=== PATIENT | male | born 1940 | race Caucasian/White ===

== ENCOUNTER 2018-06-18 06:21 | Inpatient (IN) | payer MEDICARE, OTHER ==
--- NOTE | 2018-06-05 14:51 | ANES ---
Anesthesia Pre Procedure Eval HOME MEDICATIONS amlodipine 10 mg tablet 10 mg PO DAILY 03/13/18 [Last Taken Unknown] lisinopril 10 mg-hydrochlorothiazide 12.5 mg tablet 1 tab PO DAILY 03/13/18 [Last Taken Unknown] Allergies/Adverse Reactions: Allergies Allergy/AdvReac Type Severity Reaction Status Date / Time No Known Allergies Allergy Verified 06/05/18 12:58 - Planned Procedure Planned Procedure: RT Arthroplasty Total Knee Medication List Reviewed:: Yes Allergies Verified: Yes Medical History (Last Reviewed 06/05/18 @ 12:58 by Vanessa Corbin) Hypertension Knee pain, right Surgical History (Last Reviewed 06/05/18 @ 12:58 by Vanessa Corbin) H/O colonoscopy Onset Date: ~2016 History of appendectomy Onset Date: Unknown age 6 Family History (Last Reviewed 06/05/18 @ 12:58 by Vanessa Corbin) Father Medical history unknown Mother Medical history unknown Brother 3 brothers medical history unknown Sister 2 sisters medical history unknown - Family Anesthesia History Family History:: no untoward family reactions to anesthesia, no familial bleeding tendencies, no family history of clotting disorders, no family history of premature - Airway/Neck/Teeth Within Normal Limits:: Yes Denture Type: Full- Upper & Lower Mallampatti Score: 2 Thyromental (T-M) distance: > 6 cm Mandibulo Hyoid distance: > 3 cm - Respiratory Smoking Status: Former smoker Discussed smoking cessation including day of surgery: No Sleep Apnea currently treated: No Sleep Apnea by current assessment: No Discussed Risks/Treatment of ANEL: No - Cardiovascular Tolerates Activity: Fair Heart Sounds: S1 & S2, Regular - Anesthesia Assessment and Plan ASA Class: PS, II Anesthesia Type Plan: Block - Right ultrasound guided peripheral nerve block for postop analgesia, Spinal
[~2018-06-18 06:21] MED LIST: ROPIVACAINE HCL/PF 100 MG, EPINEPHrine 0.2 MG, KETOROLAC TROMETHAMINE 30 MG in NORMAL S... IJ PRN; TRANEXAMIC ACID 1,000 MG in NORMAL SALINE 100 ML IV PRN; ceFAZolin SODIUM 1 GM VIAL IV PRN
[2018-06-18] MEDS: RINGER'S SOLUTION,LACTATED 1,000 ML IV PRN ×3 (07:07→09:30)
--- NOTE | 2018-06-18 07:25 | ANES ---
Anesthesia Pre Procedure Eval Vitals/Labs: Last Vital Signs Temp 36.8 C 06/18/18 06:25 Pulse 89 06/18/18 06:25 Resp 16 06/18/18 06:25 BP 138/82 06/18/18 06:25 Pulse Ox 93 06/18/18 06:25 HOME MEDICATIONS amlodipine 10 mg tablet 10 mg PO DAILY 03/13/18 [Last Taken 06/18/18] lisinopril 10 mg-hydrochlorothiazide 12.5 mg tablet 1 tab PO DAILY 03/13/18 [Last Taken 06/18/18] Allergies/Adverse Reactions: Allergies Allergy/AdvReac Type Severity Reaction Status Date / Time No Known Allergies Allergy Verified 06/18/18 06:29 - Planned Procedure Planned Procedure: RT Arthroplasty Total Knee Medication List Reviewed:: Yes Allergies Verified: Yes Medical History (Last Reviewed 06/18/18 @ 07:23 by Ricci Gonzalez CRNA) Hypertension Knee pain, right Surgical History (Last Reviewed 06/18/18 @ 07:24 by Ricci Gonzalez CRNA) H/O colonoscopy Onset Date: ~2016 History of appendectomy Onset Date: Unknown age 6 Family History (Last Reviewed 06/18/18 @ 07:24 by Ricci Gonzalez CRNA) Father Medical history unknown Mother Medical history unknown Brother 3 brothers medical history unknown Sister 2 sisters medical history unknown - Family Anesthesia History Family History:: no untoward family reactions to anesthesia, no familial bleeding tendencies, no family history of clotting disorders, no family history of premature - Airway/Neck/Teeth Within Normal Limits:: Yes Denture Type: Full- Upper & Lower Mallampatti Score: 2 Thyromental (T-M) distance: > 6 cm Mandibulo Hyoid distance: > 3 cm - Respiratory Respiratory: lungs clear Smoking Status: Former smoker Discussed smoking cessation including day of surgery: No Sleep Apnea currently treated: No Sleep Apnea by current assessment: No Discussed Risks/Treatment of ANEL: No - Cardiovascular Tolerates Activity: Fair Heart Sounds: S1 & S2, Regular - Anesthesia Assessment and Plan ASA Class: PS, II Anesthesia Type Plan: Block - Right ultrasound guided adductor canal nerve block for postop analgesia, Spinal
[2018-06-18] MEDS ORDERED: oxyCODONE HCL/ACETAMINOPHEN 1 TAB TABLET PO PRN (10:02)
[2018-06-18] MEDS ORDERED: ACETAMINOPHEN 500 MG TABLET PO PRN (10:02)
[2018-06-18] MEDS ORDERED: MAGNESIUM HYDROXIDE 30 ML UDC PO PRN (10:02)
[2018-06-18] MEDS ORDERED: MORPHINE SULFATE 2 MG/ML DISP.SYRIN IV PRN (10:02)
[2018-06-18] MEDS ORDERED: MAG HYDROX/ALUMINUM HYD/SIMETH 30 ML UDC PO PRN (10:02)
[2018-06-18] MEDS ORDERED: NORMAL SALINE 1,000 ML IV PRN (10:02)
[2018-06-18] MEDS ORDERED: diphenhydrAMINE HCL 50 MG/ML VIAL IV PRN (10:02)
--- NOTE | 2018-06-18 10:10 | OR ---
Operative Report - Dictated Report Narrative: Date: 06/18/2018 Preoperative diagnosis: Right knee degenerative joint disease. Postoperative diagnosis: Right knee degenerative joint disease. Procedure: Right total knee arthroplasty. Surgeon: Sunil Curry M.D. Contracting Analyst: Tomy Shepherd PA-C Anesthesia: Spinal with regional block and local periarticular joint injection. Complications: None Specimens: Bone for disposal. Estimated blood loss: Minimal. Tourniquet time: 69 Minutes at 300 millimeters of mercury. Retained implants: Depuy Attune size 8 standard lugged cemented posterior stabilized femoral component. Size 8 fixed-bearing cemented tibial platform. 8 by 6 millimeter posterior stabilized cross-linked tibial insert. 41 millimeter medialized patella button. Indications: Gatito is a 77-year-old male with a history of hypertension. This patient was followed in my clinic for period of time with significant complaints of right knee pain consistent with arthritic changes. They had failed conservative measures including but not limited to activity modification, passage of time, medications, and other conservative measures. Patient wished to proceed with surgical treatment. The risks, benefits, and alternatives were discussed in clinic. The risks of , blood clots, bleeding, infection, nerve/tendon blood vessel/ injury, malposition of components, intraoperative fracture, postoperative limited range of motion, persistent pain, failure of components, and need for additional procedures. Patient wished to proceed consent was obtained after answering all questions. Procedure: After marking the correct extremity on the floor, the patient was taken to the operating room. A timeout was performed. IV antibiotics consisting of 2 g of Ancef were administered prior to the procedure. A regional followed by spinal anesthetic was induced by anesthesia. on the operative table with all bony prominences well-padded. Benson catheter was placed and a bump was placed under the operative side buttock. SCDs and MIAH hose were utilized on the nonoperative leg. A well-padded tourniquet was applied to the operative thigh. The operative leg was then pre-scrubbed with alcohol prepped and draped in a standard sterile fashion. After exsanguinating the extremity with an Esmarch bandage, the tourniquet was inflated. After marking out the anterior knee for standard incision centered over the patella, the skin was incised and dissected down to the joint retinaculum. The joint retinaculum was marked out as well as the horizontal axis of the patella, and a standard medial parapatellar arthrotomy was then made. The most proximal aspect of the quadriceps tendon and the patella tendon insertion were protected from release. A partial synovectomy was performed as well as a resection of the infrapatellar fat pad. The distal femoral fat pad proximal to the trochlea was also resected using cautery. The soft tissues were elevated off the medial aspect of the proximal tibia using a Tejeda elevator ensuring that we did not transect the medial collateral ligament. Upon initial evaluation range of motion was approximately 0 degrees to 135 degrees of flexion. There were signs of advanced arthrosis in the medial and patellofemoral joint spaces. There were large marginal osteophytes which were removed with a rongeur. The knee was hyperflexed and the patella was tucked laterally. Protecting the surrounding soft tissues with Homans, an entry drill was placed down the femoral canal using Whitesides line for guidance into the entry point. The intramedullary femoral alignment meka was utilized in order to cut the distal femur in 5 of valgus resecting 10 millimeters of bone. Next the distal femur was sized to a size 8. An anterior referencing guide was utilized to place the distal femoral cutting block in 3 of external rotation. This was pinned into place. The rotation was confirmed both visually and based on anatomic landmarks. The 4 in 1 cutting jig of the appropriate size was utilized in order to make all bony cuts. Retractors were utilized in order to protect surrounding soft tissues. This cut did not result in any excessive notching. We then cut the box centered over the distal femur. This allowed for resection of the anterior and posterior cruciate ligaments. I then turned my attention to the preparation of the tibia. Using an extra medullary tibial alignment meka, 2 millimeters of bone was resected off the medial articular surface. This was made perpendicular to the mechanical axis of the joint with the alignment meka centered over the ankle mortise. The alignment meka was parallel to the mechanical axis, centered over the medial one third of the tibial tubercle, paralleling the anterior surface of the tibia. We then turned our attention to the remaining meniscus and soft tissues. These were removed while protecting the surrounding ligaments and soft tissues. The marginal osteophytes off the anterior, posterior, medial, lateral aspects of the femur and tibia were removed. The tibia was sized out to a size 8. Next the tibia was drilled and punched in an externally rotated position as confirmed with a drop meka. Next the trial femur and a series of tibial inserts were utilized in order to allow for full extension and maximal flexion. It was found that a 6 millimeter insert gave the best range of motion and stability at multiple flexion points as well as at full extension there was less than 2 mm of gapping both medially and laterally. There is minimal anterior translation with the knee at 90 of flexion and no signs of being able to dislocate the knee. The patella was then prepared. The initial thickness was 24 millimeters. This was reamed down to 14 millimeters parallel to the anterior surface of the patella. It was sized out to a size 41 mm medialized patella button. This was then drilled and trialed. Without any medial restraint the patella tracked appropriately and did not sublux or dislocate. At this point, it was felt these were the appropriate sized implants and all trials were removed. The standard periarticular joint injection consisting of ropivacaine, Toradol, and epinephrine were injected into the periarticular joint tissues. The bony surfaces were thoroughly irrigated with a pulsatile-suction saline irrigation device. A bone plug from the prior resected anterior chamfer cut was placed into the drill hole at the distal femur. The bony surfaces were then dried in preparation for placement of the implants. The cement was vacuum mixed per the drywall applicator's instructions. The cement was placed on the dry bony surfaces and posterior aspect of the implants. The implants were impacted into place, removing all extruded cement. At this point anesthesia administered tranexamic acid per protocol intravenously. The knee was placed in extension with axial loading with the trial insert while the cement cured. A dilute 0.35% betadyne-saline solution was used to irrigate the knee and allowed to sit in the knee while the cement cured. Once the cement cured, all remaining extruded cement was removed. The knee was placed through a range of motion with the trial insert to ensure appropriate range of motion and stability. Final range of motion was approximately 0 to 130 degrees. The knee was again thoroughly irrigated with pulsatile saline lavage. The final polyethylene insert was then impacted into place ensuring no retained soft tissues. The remaining hank articular joint injection was injected. The knee was then packed with lap sponges which were soaked with dilute betadyne solution and the tourniquet was let down. Pressure was held for approximately 2 minutes and then hemostasis was obtained using electrocautery to coagulate any bleeding vessels. The knee was then placed over a triangle and the arthrotomy was closed with interrupted #1 Vicryl after thoroughly irrigating the joint. The deep and subcutaneous tissues were closed with interrupted oh and 3-0 Vicryl respectively. Skin was closed with a running subcutaneous 3-0 Monocryl and Prineo dressing. 4 x 4's, ABD, Sof-Rol, and a full leg Gallito wrap were applied. All sponge, needle, blade, and instrument counts were correct prior to closing the wounds. Postoperative condition: The patient was awoken and transferred to the postanesthesia care unit in stable condition. Plan is to be admitted to the inpatient medical/surgical floor postoperatively for 24 hours of IV antibiotics, physical therapy, occupational therapy, and medical co-management. Patient will be weightbearing as tolerated with range of motion as tolerated. DVT prophylaxis will be with SCDs, MIAH hose, and pharmacological anticoagulation. Anticipated hospital stay is approximately 2-4 days.
--- NOTE | 2018-06-18 10:41 | ANES ---
Post Anesthesia Discharge - Transfer of Care Transfer of Care handoff given to nurse: Yes - Discharge from PACU Discharge from PACU when meets criteria: Yes - Discharge to [facility] Discharge to [facility]-no complications/pt stable: Yes
--- NOTE | 2018-06-18 10:44 | ANES ---
Anesthesia Procedure Note Procedure Note: ANESTHESIA PROCEDURE NOTE Date of Procedure: 06/18/2018. Time of procedure: 0740. Performed by: Ricic Gonzalez CRNA Roaster Operator: None. Preprocedure diagnosis: Right knee degenerative joint disease. Post procedure diagnosis: Same. Procedure: Right ultrasound guided adductor canal block for postoperative analgesia. Indications: The patient is a 77-year-old male, requesting right ultrasound- guided abductor canal block for postoperative analgesia related to right total knee arthroplasty. Findings: See below. Details of the procedure: The tissue over the intended target site was cleansed with ChloraPrepand draped in a sterile fashion. 2 ml Lidocaine 1 % was infiltrated to the skin and subcutaneous tissue at the intended target site. Under sterile technique and ultrasound guidance a 18-gauge Tuohy needle was inserted through the right sartorius muscle to the saphenous nerve just anterior and medial to the superficial femoral artery and vein. 15 mL's of 0.5% bupivacaine was injected after negative aspiration for blood. Needle tip and spread of local anesthetic surrounding the saphenous nerve was observed throughout the injection with real time ultrasound visualization. The Tuohy needle was then removed intact. No complications were noted. The images were retained in the Hospital medical database. EBL: Minimal. Fluids: N/A. Specimen: N/A. Post procedure condition: The patient tolerated the procedure well. No complications were noted. Thank you for this consultation. Ricci Gonzalez CRNA
--- NOTE | 2018-06-18 11:50 | ANES ---
Post Anesthesia Assessment - Vital Signs Vitals: Last Vital Signs Temp 36.0 C 06/18/18 11:00 Pulse 67 06/18/18 11:00 Resp 14 06/18/18 11:00 BP 104/54 06/18/18 11:00 Pulse Ox 93 06/18/18 11:00 Airway Patency: Normal - Mental Status Level Of Consciousness: Awake - Pain Level Pain Score: 0 - N/V Assessment Nausea/Vomiting Presence: None Dehydration:: No
[2018-06-18] MEDS: oxyCODONE HCL/ACETAMINOPHEN 1 TAB TABLET PO PRN ×2 (12:34→20:03)
[2018-06-18] MEDS: ceFAZolin SODIUM 2 GM in DEXTROSE 5 % IN WATER 50 ML IV SCH ×4 (15:40→21:32)
[2018-06-18] MEDS: SENNOSIDES/DOCUSATE SODIUM 1 TAB TABLET PO SCH (20:11)
[2018-06-19] MEDS: oxyCODONE HCL/ACETAMINOPHEN 1 TAB TABLET PO PRN ×4 (01:46→17:49)
[2018-06-19] MEDS: ceFAZolin SODIUM 2 GM in DEXTROSE 5 % IN WATER 50 ML IV SCH ×2 (05:04)
[2018-06-19 05:42] LABS: Anion Gap 9.5 mmol/L (6.8-13.8); BUN/Creatinine Ratio 19.4 (9.0-21.6); Calcium * 8.7 mg/dL (7.9-10.9); Carbon Dioxide 28.7 mmol/L (24-32.6); Estimated Creat Clear 62.4; Potassium 4.2 mmol/L (3.4-4.6)
[2018-06-19 05:43] LABS: Hematocrit 37.9 % (42.0-52.0); Hemoglobin 12.7 gm/dL (13.5-18.0); Mean Cell Volume 90.7 fl (78-100); Mean Corpuscular Hemoglobin 30.4 pg (27-31); Mean Corpuscular Hgb Conc 33.5 g/dl (32-36); Mean Platelet Volume 9.2 fl (8-11.3); Platelet Count 212 K/mm3 (150-450); Red Blood Count 4.18 M/mm3 (4.7-6.0); Red Cell Distribution Width 12.8 % (11.5-14.0); White Blood Count 8.4 K/mm3 (4.0-10.5)
[2018-06-19] MEDS: ONDANSETRON HCL/PF 2 MG/ML VIAL IV PRN ×3 (07:53→17:52)
[2018-06-19] MEDS: amLODIPine BESYLATE 10 MG TABLET PO SCH (08:06)
[2018-06-19] MEDS: HYDROCHLOROTHIAZIDE 12.5 MG CAPSULE PO SCH (08:08)
[2018-06-19] MEDS: ENOXAPARIN SODIUM 40 MG/0.4 ML SYRG SC SCH (08:08)
[2018-06-19] MEDS: LISINOPRIL 10 MG TABLET PO SCH (08:08)
[2018-06-19] MEDS ORDERED: NON-FORMULARY 1 DOSE DOSE (Lisinopril/Hydrochlorothiazide [Lisinopril-Hctz 10-12.5 Mg Tab] PO SCH (09:00)
--- NOTE | 2018-06-19 16:17 | PN ---
Subjective - Date and Time Seen Date: 06/19/18 Time: 16:11 Subjective Narrative: Patient reports he has not felt well throughout today, he has had multiple episodes of nausea and one episode of vomiting. He has been zofran without complete relief, but mild improvement. He notes his pain is fairly well controlled, 7/10 after walking, improves with rest. Objective - Vitals Vitals: Last Vital Signs Temp 37.2 C 06/19/18 14:00 Pulse 73 06/19/18 14:00 Resp 20 06/19/18 14:00 BP 119/68 06/19/18 14:00 Pulse Ox 91 L 06/19/18 14:00 - Abnormal Lab Findings Abnormal Lab Findings: Abnormal Lab Results 06/19/18 06/19/18 Range/Units 05:05 05:05 RBC 4.18 L (4.7-6.0) M/mm3 Hgb 12.7 L (13.5-18.0) gm/dL Hct 37.9 L (42.0-52.0) % Random Glucose 132 H (70-110) mg/dL - Exam Constitutional: Present: Alert, Cooperative Respiratory: Present: no respiratory distress Extremity: Present: other - RLE--> bandages c/d/i, SILT, PF/DF 5/5, distal capillary refill brisk Appearance: Present: other - mildly uncomfortable sitting in chair Eye contact: Present: cooperative Thoughts: Present: normal thought pattern Cauti Physician Documentation - Urinary Catheter Management Urethral (Benson) Date of Insertion: 06/18/18 Time of Insertion: 08:10 Date of Removal: 06/18/18 Time of Removal: 15:44 Assessment/Plan Plan Narrative: -77 y/o male post-op day#1 s/p right total knee arthroplasty - WBAT - PO diet as tolerated, patient has not tolerated PO diet will continue observation until able to discharge home tolerating diet - PO pain medication PRN - DVT prophylaxis: chirag fernandez, SCDs in bed - Hgb 12.7, continue to monitor - Maintain post-op dressing in place Dispo: plan to discharge home when patient is stable, tolerating PO diet, pain well controlled, PT goals met - Problems/Diagnosis (1) Status post total right knee replacement Problem: Acute
[2018-06-19] MEDS: SENNOSIDES/DOCUSATE SODIUM 1 TAB TABLET PO SCH (21:40)
[2018-06-20] MEDS: oxyCODONE HCL/ACETAMINOPHEN 1 TAB TABLET PO PRN (01:03)
[2018-06-20 05:43] LABS: Anion Gap 6.3 mmol/L (6.8-13.8); BUN/Creatinine Ratio 16.1 (9.0-21.6); Calcium * 9.4 mg/dL (7.9-10.9); Carbon Dioxide 31.9 mmol/L (24-32.6); Estimated Creat Clear 65.8; Potassium 4.2 mmol/L (3.4-4.6)
[2018-06-20 05:46] LABS: Hematocrit 37.5 % (42.0-52.0); Hemoglobin 12.4 gm/dL (13.5-18.0); Mean Cell Volume 91.5 fl (78-100); Mean Corpuscular Hemoglobin 30.2 pg (27-31); Mean Corpuscular Hgb Conc 33.1 g/dl (32-36); Mean Platelet Volume 9.3 fl (8-11.3); Platelet Count 208 K/mm3 (150-450); Red Cell Distribution Width 12.7 % (11.5-14.0); White Blood Count 9.5 K/mm3 (4.0-10.5)
[2018-06-20] MEDS: ONDANSETRON HCL/PF 2 MG/ML VIAL IV PRN (06:40)
[2018-06-20] MEDS: HYDROCHLOROTHIAZIDE 12.5 MG CAPSULE PO SCH (08:17)
[2018-06-20] MEDS: amLODIPine BESYLATE 10 MG TABLET PO SCH (08:18)
[2018-06-20] MEDS: LISINOPRIL 10 MG TABLET PO SCH (08:19)
[2018-06-20] MEDS: ENOXAPARIN SODIUM 40 MG/0.4 ML SYRG SC SCH (08:20)
--- NOTE | 2018-06-20 08:50 | DS ---
(1) Status post total right knee replacement Problem: Acute Description of Stay: -77 y/o male post-op day#2 s/p right total knee replacement. Patient was admitted after right TKA for observation, pain control, return to PO diet, and PT to work on ambulation. Patient reports no acute events, on post-op day#1 patient had uncontrolled nausea, and pain rating of 7/10. He also was not tolerating a PO diet at this time. Today patient pain is well controlled, his bandages were removed, nausea has been resolved, pain is well controlled. Exam revealed SILT, distal pulses 2+, PF/DF 5/5, no erythema or drainage from incision. Plan for discharge with f/u in 2 week at orthopedic outpatient clinic with Dr. Curry. - WBAT - PO diet as tolerated - PO pain medication PRN - DVT prophylaxis: lovenox for 10 days followed by 6 weeks of 325mg aspirin daily, chirag hose - Dressing removed, monitor for erythema or drainage Procedures Performed: see notes below List Procedures: Right total knee replacement Results and Findings: Lab Pending Results 06/19/18 05:05: WBC 8.4, RBC 4.18 L, Hgb 12.7 L, Hct 37.9 L, MCV 90.7, MCH 30.4, MCHC 33.5, RDW 12.8, Plt Count 212, MPV 9.2 06/19/18 05:05: Sodium 138, Plasma Sodium 139, Potassium 4.2, Chloride 104, Carbon Dioxide 28.7, Anion Gap 9.5, BUN 19, Creatinine 0.98, Est GFR (Non-Af Amer) 79, BUN/Creatinine Ratio 19.4, Random Glucose 132 H, Calcium 8.7 06/20/18 05:10: WBC 9.5, RBC 4.10 L, Hgb 12.4 L, Hct 37.5 L, MCV 91.5, MCH 30.2, MCHC 33.1, RDW 12.7, Plt Count 208, MPV 9.3 06/20/18 05:10: Sodium 137, Plasma Sodium 137, Potassium 4.2, Chloride 103, Carbon Dioxide 31.9, Anion Gap 6.3 L, BUN 15, Creatinine 0.93, Est GFR (Non-Af Amer) 84, BUN/Creatinine Ratio 16.1, Random Glucose 115 H, Calcium 9.4 Discharge Location: Home Disposition: Home self-care Condition: Good Discharge Activity: Weight bearing Discharge Diet: General/regular food Referrals: Darron Payan MD [Primary Care Provider] - Problem Oriented Discharge Instructions to Patient/Family: Total Knee Replacement, [id number] Print Language (French or Israeli Available): French Additional Patient Instructions (free text): Physical Therapy at [facility] in [place] on 06/20/18 at 1:00pm, Please fax discharge order to them to [phone]. [address] Curry Orthopedic appt. on Sunday07/03/18 at 9:00am. Prescriptions (Any new or edited meds): Ondansetron HCl [Zofran] 4 mg PO BID PRN #20 tablet PRN Reason: Nausea RX: oxyCODONE HCL/ACETAMINOPHEN [Percocet 5 MG/325 MG] 1 - 2 tab PO Q4H PRN #90 tab PRN Reason: Severe Pain (Pain Scale 7-10) Complete Home Medications List: Complete Home Medication List: amlodipine 10 mg tablet 10 mg PO DAILY 03/13/18 lisinopril 10 mg-hydrochlorothiazide 12.5 mg tablet 1 tab PO DAILY 03/13/18 Enoxaparin Sodium [Lovenox] 40 mg SC Q24H #8 disp.syrin 06/20/18 Ondansetron HCl [Zofran] 4 mg PO BID PRN #20 tablet 06/20/18 Sennosides/Docusate Sodium [Senokot-S] 2 tab PO HS tablet 06/20/18 oxyCODONE HCL/ACETAMINOPHEN [Percocet 5 MG/325 MG] 1 - 2 tab PO Q4H PRN #90 tab 06/20/18
[2018-06-20 12:34] VITALS: BP 151/75
== END 2018-06-20 12:45 | disposition home or self-care (01) | DRG 470 ==
LOC: MS 06:21 → INTOOBSV 06:21 → EDSTATUS 08:00
PROVIDERS: ADMIT Orthopaedic Surgery; ATTEND Orthopaedic Surgery
CPT/HCPCS: 36415; 73560; 80048; 85027; 97110; 97116; 97161; 97165; J2405